=== PATIENT | male | born 1930 | race American Indian/Alaskan Native ===

== ENCOUNTER 2018-08-15 13:37 | Inpatient (IN) | payer MEDICARE ==
[2018-08-15] MEDS ORDERED: NACL 0.9% 1000 ML 1,000 ML IV ONE (14:30)
--- NOTE | 2018-08-15 14:31 | Emergency Department Report ---
ED GI Bleed HPI - General Chief complaint: GI Bleed Stated complaint: RECTAL PAIN Time Seen by Provider: 08/15/18 14:28 Source: EMS Mode of arrival: Stretcher Limitations: No Limitations - History of Present Illness Initial comments: Mrs. Turner is a 87-year-old male with history of end-stage renal disease on hemodialysis, last dialysis was Thursday. Patient brought to the emergency room via EMS for evaluation of lower GI bleed. Patient stated that for the last 7 days he has been passing black stool. Patient denied any abdominal pain, no hematemesis, hemoptysis or hematuria. Patient denied any chest pain or shortness of breath. Patient does not recall any endoscopy or colonoscopy in the last 10 years. MD complaint: melena -: days(s) (7) Severity scale (0 -10): 7 - Related Data Allergies Allergy/AdvReac Type Severity Reaction Status Date / Time No Known Allergies Allergy Verified 04/16/18 13:02 ED Review of Systems ROS: Stated complaint: RECTAL PAIN Other details as noted in HPI Comment: All other systems reviewed and negative Constitutional: denies: chills, fever Respiratory: denies: cough, orthopnea, shortness of breath, SOB with exertion, SOB at rest Cardiovascular: denies: chest pain, palpitations Gastrointestinal: melena. denies: abdominal pain, nausea, vomiting, diarrhea, constipation, hematemesis, hematochezia Musculoskeletal: denies: back pain Neurological: denies: headache, weakness ED Physical Exam - General Limitations: No Limitations General appearance: alert, in no apparent distress - Head Head exam: Present: atraumatic, normocephalic, normal inspection - Eye Eye exam: Present: normal appearance, PERRL - ENT ENT exam: Present: normal exam, normal orophraynx, mucous membranes moist - Neck Neck exam: Present: normal inspection, full ROM. Absent: tenderness, meningismus, lymphadenopathy, thyromegaly - Respiratory Respiratory exam: Present: normal lung sounds bilaterally - Cardiovascular Cardiovascular Exam: Present: regular rate, normal rhythm, normal heart sounds - GI/Abdominal GI/Abdominal exam: Present: soft, normal bowel sounds. Absent: distended, tenderness, guarding, rebound, rigid, organomegaly, pulsatile mass, hernia - Rectal Rectal exam: Present: normal inspection, normal rectal tone, heme (+) stool, black stool. Absent: fecal impaction, hemorrhoids, mass, tenderness - Back Exam Back exam: Present: normal inspection. Absent: CVA tenderness (R), CVA tenderness (L) - Neurological Exam Neurological exam: Present: alert, oriented X3, CN II-XII intact - Skin Skin exam: Present: warm, intact, normal color ED Course Vital Signs 08/15/18 13:55 Temperature 97.8 F Pulse Rate 65 Respiratory 18 Rate Blood Pressure 122/65 [Right] O2 Sat by Pulse 98 Oximetry ED Medical Decision Making - Lab Data Result diagrams: 08/15/18 15:08 08/15/18 15:08 - Medical Decision Making Mrs. Turner is a 87-year-old male with history of end-stage renal disease on hemodialysis, last dialysis was Thursday. Patient brought to the emergency room via EMS for evaluation of lower GI bleed. Patient stated that for the last 7 days he has been passing black stool. Patient denied any abdominal pain, no hematemesis, hemoptysis or hematuria. Patient denied any chest pain or shortness of breath. Patient does not recall any endoscopy or colonoscopy in the last 10 years. Patient remained stable in the ER. Hemoglobin came back at 11.1. I discussed the patient is Dr. Donahue, from gastroenterology, he advised to keep patient nothing by mouth after midnight for possible endoscopy tomorrow. I discussed the patient is Dr. Ramsay, he agreed to admit the patient to medical service for further management. Critical Care Time: Yes Critical care time in (mins) excluding proc time.: 30 Critical care attestation.: If time is entered above; I have spent that time in minutes in the direct care of this critically ill patient, excluding procedure time. ED Disposition Clinical Impression: Gastrointestinal hemorrhage Disposition: OP ADMIT IP TO THIS HOSP Is pt being admited?: Yes Condition: Stable Forms: Accompanied Note
[2018-08-15 15:39] LABS: Basophils # (Auto) 0.1 K/mm3 (0.0-0.1); Basophils % (Auto) 1.2 % (0.0-1.8); Eosinophils # (Auto) 0.2 K/mm3 (0.0-0.4); Hematocrit 34.4 % (35.5-45.6); Hemoglobin 11.3 gm/dl (11.8-15.2); Lymphocytes # (Auto) 0.8 K/mm3 (1.2-5.4); Mean Corpuscular HGB Conc 33 % (32-34); Mean Corpuscular Volume 100 fl (84-94); Monocytes # (Auto) 0.4 K/mm3 (0.0-0.8); Monocytes % (Auto) 7.8 % (0.0-7.3); Platelet Count 185 K/mm3 (140-440); Red Blood Count 3.45 M/mm3 (3.65-5.03)
[2018-08-15 15:46] LABS: INR 0.98 (0.87-1.13); Red Cell Distribution Width 20.7 % (13.2-15.2)
[2018-08-15 15:47] LABS: Partial Thromboplastin Time 32.1 Sec. (24.2-36.6)
[2018-08-15 15:56] LABS: Albumin 3.3 g/dL (3.9-5); Bilirubin,Direct 0.2 mg/dL (0-0.2); Calcium 10.3 mg/dL (8.4-10.2)
[2018-08-15] MEDS: PROTONIX 80 MG in NACL 0.9% 100 ML IV SCH (16:28)
--- NOTE | 2018-08-15 17:47 | Consultation ---
History of Present Illness - Reason for Consult Consult date: 08/15/18 GI bleed Requesting physician: JULIO CESAR DIAZ - History of Present Illness Mr. Turner is an 87-year-old man on whom I am consulted for evaluation of melena. Patient states he has had melena for more than a week. He states his bowel movements have changed and he is having to go every 3 or 4 hours or has the sense of needing to go though sometimes nothing will come out. By my history, patient was most concerned about the sense of need to defecate and then not having much in the way of output almost on an hourly basis with bowel movements occurring every 3-4 hours. Patient is however difficult to elucidate a cohesive history from. Patient has end-stage renal disease and states he has been on dialysis for over 6 months. He states that he did have some kind of bleeding from his stomach approximately a year ago, but he cannot recall at which hospital this was. Patient states he was at another hospital approximately a month ago with pneumonia and has not been able to walk since then. Unfortunately, we do not have any details. Patient denies abdominal pain nausea or vomiting. He denies chest pain shortness of breath lightheadedness or dizziness. He denies aspirin or non-pavan roidal usage, or known liver disease. Past History Past Medical History: diabetes, dialysis, ESRD, hypertension Past Surgical History: Other (Dialysis catheter in L subclavian) Social history: no significant social history. denies: smoking, alcohol abuse Family history: other (Unable to obtain) Medications and Allergies Allergies Allergy/AdvReac Type Severity Reaction Status Date / Time No Known Allergies Allergy Verified 04/16/18 13:02 Active Meds: Active Medications Sodium Chloride (Nacl 0.9% 1000 Ml) 1,000 mls @ 125 mls/hr IV ONCE ONE Stop: 08/15/18 22:29 Last Admin: 08/15/18 14:30 Dose: 125 mls/hr Documented by: Pantoprazole Sodium 80 mg/ (Sodium Chloride) 100 mls @ 10 mls/hr IV DIRECT LAVINIA Last Admin: 08/15/18 16:28 Dose: 8 mg/hr, 10 mls/hr Documented by: Review of Systems All systems: negative (as per HPI. Difficult to get cogent history) Exam - Constitutional Vitals: Temp Pulse Resp BP Pulse Ox 97.8 F 65 18 122/65 98 08/15/18 13:55 08/15/18 13:55 08/15/18 14:30 08/15/18 13:55 08/15/18 13:55 General appearance: Present: no acute distress, cachectic - EENT Eyes: Present: PERRL, EOM intact ENT: hearing intact - Neck Neck: Present: supple - Respiratory Respiratory effort: normal Respiratory: bilateral: CTA - Cardiovascular Rhythm: regular Heart Sounds: Present: S1 & S2 - Extremities Extremities: No edema - Abdominal General gastrointestinal: Present: soft, non-tender - Rectal Rectal Exam: other (Melena, Heme+, per ER) Results - Labs CBC & Chem 7: 08/15/18 15:08 08/15/18 15:08 Labs: Abnormal lab results 08/15/18 08/15/18 Range/Units 15:08 15:08 RBC 3.45 L (3.65-5.03) M/mm3 Hgb 11.3 L (11.8-15.2) gm/dl Hct 34.4 L (35.5-45.6) % MCV 100 H (84-94) fl MCH 33 H (28-32) pg RDW 20.7 H (13.2-15.2) % [place] % (Auto) 7.8 H (0.0-7.3) % Lymph # 0.8 L (1.2-5.4) K/mm3 Seg Neutrophils % 74.0 H (40.0-70.0) % Chloride 95.7 L (98-107) mmol/L BUN 37 H (9-20) mg/dL Creatinine 7.5 H (0.8-1.5) mg/dL Calcium 10.3 H (8.4-10.2) mg/dL Albumin 3.3 L (3.9-5) g/dL Assessment and Plan 1. Melena - history is perplexing since, with melena as described, patient should be much more anemic. This would be especially so given that he is on dialysis. His relatively good hemoglobin is therefore inexplicable. However, he does give a history of what sounds like an upper GI bleed, and therefore placing him on proton pump inhibitors is appropriate. - Continue PPI - Monitor H&H and transfuse as needed - We will do EGD tomorrow if not medically contraindicated.
[2018-08-15] MEDS ORDERED: REGLAN IV PRN (19:07)
[2018-08-15] MEDS ORDERED: TYLENOL PO PRN (19:07)
[2018-08-15] MEDS ORDERED: SODIUM CHLORIDE FLUSH SYRINGE 10 ML IV PRN (19:07)
[2018-08-15] MEDS ORDERED: MORPHINE IV PRN (19:07)
[2018-08-15] MEDS ORDERED: ZOFRAN IV PRN (19:07)
--- NOTE | 2018-08-15 19:11 | History and Physical Report ---
History of Present Illness Date of examination: 08/15/18 Date of admission: 08/15/18 16:36 Chief complaint: Dark stools for about 2 weeks History of present illness: Johnny is a 87-year-old male with history of end-stage renal disease on hemodialysis, last dialysis was Thursday brought to the emergency room via EMS for evaluation of lower GI bleed. Patient stated that for the last 14 days he has been passing black stools. Patient denied any abdominal pain, no h ematemesis, hemoptysis or hematuria. Patient denied any chest pain or shortness of breath. Patient does not recall any endoscopy or colonoscopy in the last 10 years. No lightheadedness or dizziness or syncope. Past History Past Medical History: diabetes, dialysis, ESRD, hypertension Past Surgical History: Other (Dialysis catheter in L subclavian) Social history: no significant social history. denies: smoking, alcohol abuse Family history: other (Unable to obtain) Review of Systems ROS: Stated complaint: RECTAL PAIN Other details as noted in HPI Comment: All other systems reviewed and negative Constitutional: denies: chills, fever Respiratory: denies: cough, orthopnea, shortness of breath, SOB with exertion, SOB at rest Cardiovascular: denies: chest pain, palpitations Gastrointestinal: melena. denies: abdominal pain, nausea, vomiting, diarrhea, constipation, hematemesis, hematochezia Musculoskeletal: denies: back pain Neurological: denies: headache, weakness 14 point review of systems and otherwise negative Past History Past Medical History: diabetes, dialysis, ESRD, hypertension Past Surgical History: Other (Dialysis catheter in L subclavian) Social history: no significant social history. denies: smoking, alcohol abuse Family history: other (Unable to obtain) Medications and Allergies Allergies Allergy/AdvReac Type Severity Reaction Status Date / Time No Known Allergies Allergy Verified 04/16/18 13:02 Active Meds: Active Medications Acetaminophen (Tylenol) 650 mg PO Q4H PRN PRN Reason: Pain MILD(1-3)/Fever >100.5/SERRA Sodium Chloride (Nacl 0.9% 1000 Ml) 1,000 mls @ 125 mls/hr IV ONCE ONE Stop: 08/15/18 22:29 Last Admin: 08/15/18 14:30 Dose: 125 mls/hr Documented by: Pantoprazole Sodium 80 mg/ (Sodium Chloride) 100 mls @ 10 mls/hr IV DIRECT LAVINIA Last Admin: 08/15/18 16:28 Dose: 8 mg/hr, 10 mls/hr Documented by: Sodium Chloride (Nacl 0.9% 1000 Ml) 1,000 mls @ 75 mls/hr IV DIRECT LAVINIA Metoclopramide HCl (Reglan) 10 mg IV Q6H PRN PRN Reason: Nausea And Vomiting Morphine Sulfate (Morphine) 2 mg IV Q4H PRN PRN Reason: Pain, Moderate (4-6) Ondansetron HCl (Zofran) 4 mg IV Q3H PRN PRN Reason: Nausea And Vomiting Sodium Chloride (Sodium Chloride Flush Syringe 10 Ml) 10 ml IV BID LAVINIA Sodium Chloride (Sodium Chloride Flush Syringe 10 Ml) 10 ml IV PRN PRN PRN Reason: LINE FLUSH Exam - Constitutional Vitals: Temp Pulse Resp BP Pulse Ox 97.8 F 65 18 122/65 98 08/15/18 13:55 08/15/18 13:55 08/15/18 14:30 08/15/18 13:55 08/15/18 13:55 General appearance: Present: no acute distress, well-nourished - EENT Eyes: Present: PERRL ENT: hearing intact, clear oral mucosa - Neck Neck: Present: supple, normal ROM - Respiratory Respiratory effort: normal Respiratory: bilateral: CTA - Cardiovascular Heart rate: 60 Rhythm: regular Heart Sounds: Present: S1 & S2. Absent: rub, click - Extremities Extremities: pulses symmetrical, No edema Peripheral Pulses: within normal limits - Abdominal General gastrointestinal: Present: soft, non-tender, non-distended, normal bowel sounds Male genitourinary: Present: normal - Rectal Rectal Exam: deferred - Integumentary Integumentary: Present: clear, warm, dry - Musculoskeletal Musculoskeletal: gait normal, strength equal bilaterally - Psychiatric Psychiatric: appropriate mood/affect, intact judgment & insight - Neurologic Neurologic: CNII-XII intact, moves all extremities - Allied Health Allied health notes reviewed: nursing, case management Results - Labs CBC & Chem 7: 08/15/18 20:51 08/15/18 15:08 Labs: Laboratory Last Values WBC 5.7 K/mm3 (4.5-11.0) 08/15/18 15:08 RBC 3.45 M/mm3 (3.65-5.03) L 08/15/18 15:08 Hgb 11.3 gm/dl (11.8-15.2) L 08/15/18 15:08 Hct 34.4 % (35.5-45.6) L 08/15/18 15:08 MCV 100 fl (84-94) H 08/15/18 15:08 MCH 33 pg (28-32) H 08/15/18 15:08 MCHC 33 % (32-34) 08/15/18 15:08 RDW 20.7 % (13.2-15.2) H 08/15/18 15:08 Plt Count 185 K/mm3 (140-440) 08/15/18 15:08 Lymph % (Auto) 14.0 % (13.4-35.0) 08/15/18 15:08 [place] % (Auto) 7.8 % (0.0-7.3) H 08/15/18 15:08 Eos % (Auto) 3.0 % (0.0-4.3) 08/15/18 15:08 Baso % (Auto) 1.2 % (0.0-1.8) 08/15/18 15:08 Lymph # 0.8 K/mm3 (1.2-5.4) L 08/15/18 15:08 [place] # 0.4 K/mm3 (0.0-0.8) 08/15/18 15:08 Eos # 0.2 K/mm3 (0.0-0.4) 08/15/18 15:08 Baso # 0.1 K/mm3 (0.0-0.1) 08/15/18 15:08 Seg Neutrophils % 74.0 % (40.0-70.0) H 08/15/18 15:08 Seg Neutrophils # 4.2 K/mm3 (1.8-7.7) 08/15/18 15:08 PT 13.6 Sec. (12.2-14.9) 08/15/18 15:08 INR 0.98 (0.87-1.13) 08/15/18 15:08 APTT 32.1 Sec. (24.2-36.6) 08/15/18 15:08 Sodium 138 mmol/L (137-145) 08/15/18 15:08 Potassium 4.0 mmol/L (3.6-5.0) 08/15/18 15:08 Chloride 95.7 mmol/L (98-107) L 08/15/18 15:08 Carbon Dioxide 27 mmol/L (22-30) 08/15/18 15:08 19 mmol/L 08/15/18 15:08 BUN 37 mg/dL (9-20) H 08/15/18 15:08 7.5 mg/dL (0.8-1.5) H 08/15/18 15:08 Estimated GFR 8 ml/min 08/15/18 15:08 5 % 08/15/18 15:08 Glucose 97 mg/dL (75-100) 08/15/18 15:08 Calcium 10.3 mg/dL (8.4-10.2) H 08/15/18 15:08 0.50 mg/dL (0.1-1.2) 08/15/18 15:08 0.2 mg/dL (0-0.2) 08/15/18 15:08 0.3 mg/dL 08/15/18 15:08 AST 26 units/L (5-40) 08/15/18 15:08 ALT 8 units/L (7-56) 08/15/18 15:08 88 units/L (35-129) 08/15/18 15:08 7.2 g/dL (6.3-8.2) 08/15/18 15:08 3.3 g/dL (3.9-5) L 08/15/18 15:08 0.8 % 08/15/18 15:08 Blood Type O POSITIVE 08/15/18 15:15 Antibody Screen Negative 08/15/18 15:15 - Imaging and Cardiology EKG: report reviewed (atrial fibrillation heart rate of 60 went into premature complexes left bundle branch block) Assessment and Plan Advance Directives: Yes (full code) VTE prophylaxis?: Mechanical Plan of care discussed with patient/family: Yes - Patient Problems (1) Gastrointestinal hemorrhage Current Visit: Yes Status: Chronic Plan to address problem: Unclear whether it is because of iron supplements There is no significant drop in H&H GI consult IV Protonix drip (2) ESRD (end stage renal disease) Current Visit: Yes Status: Chronic Plan to address problem: Continue hemodialysis as per schedule Nephrology apartment leasing consultant (3) Hypertension Current Visit: Yes Status: Chronic Qualifiers: Hypertension type: essential hypertension Qualified Code(s): I10 - Essential (primary) hypertension Plan to address problem: Catapres patch if necessary (4) Malnutrition Current Visit: Yes Status: Chronic Qualifiers: Protein-calorie malnutrition severity: moderate Plan to address problem: Oral supplements to be initiated Dietitian consult requested (5) DVT prophylaxis Current Visit: Yes Status: Acute Plan to address problem: On SCDs and GI prophylaxis
[2018-08-15] MEDS: NACL 0.9% 1000 ML 1,000 ML IV SCH (20:43)
[2018-08-15] MEDS: SODIUM CHLORIDE FLUSH SYRINGE 10 ML IV SCH (21:44)
[2018-08-15 22:08] LABS: Hematocrit 37.7 % (35.5-45.6); Hemoglobin 12.1 gm/dl (11.8-15.2)
[2018-08-16 05:12] LABS: Basophils # (Auto) 0.1 K/mm3 (0.0-0.1); Basophils % (Auto) 1.9 % (0.0-1.8); Eosinophils # (Auto) 0.2 K/mm3 (0.0-0.4); Eosinophils % (Auto) 4.1 % (0.0-4.3); Hematocrit 36.1 % (35.5-45.6); Hemoglobin 11.8 gm/dl (11.8-15.2); Lymphocytes # (Auto) 0.9 K/mm3 (1.2-5.4); Lymphocytes % (Auto) 16.5 % (13.4-35.0); Mean Corpuscular HGB Conc 33 % (32-34); Mean Corpuscular Volume 99 fl (84-94); Monocytes # (Auto) 0.4 K/mm3 (0.0-0.8); Monocytes % (Auto) 8.1 % (0.0-7.3); Platelet Count 179 K/mm3 (140-440); Red Blood Count 3.65 M/mm3 (3.65-5.03)
[2018-08-16 05:17] LABS: Red Cell Distribution Width 21.3 % (13.2-15.2)
[2018-08-16 05:29] LABS: Albumin 3.2 g/dL (3.9-5); Calcium 9.8 mg/dL (8.4-10.2)
[2018-08-16] MEDS: PROTONIX 80 MG in NACL 0.9% 100 ML IV SCH ×2 (05:55→21:52)
--- NOTE | 2018-08-16 07:38 | Progress Note ---
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 Acute blood loss anemia w/ +hemoccult in ED: GI following, monitor h/h closely, treat with PPI, EGD pending Hypertensive with Bradycardia, as low as 49: obtain home medications, remote tele->junctional 55, PACs ESRD on HD: consult Nephrology Mild malnutrition, poa: consulted [facility] Functional quadreplegia, poa: consulted PT need home med into EMR, d/w nursing full code DVT prophylaxis scd due to the melana Disposition: continue inpatient care, pending EGD, if negative and h/h stable tomorrow then discharge History Interval history: Patient was seen and examined. Follow-up on current diagnosis of Melena with An emia. No overnight events reported to me. Patient denies any chest pain, shortness breath, nausea/vomiting or severe headaches. Imaging, nursing note, chart, labs and old chart reviewed. Discussed with patient. Hospitalist Physical - Physical exam Narrative exam: Gen:thin frial, NAD, Awake, Alert, Orientated HEENT: NCAT, EOMI, PERRL, OP Clear Neck: supple, no adenopathy, no thyromegaly, no JVD CVS/Heart: Regular bradycardia, normal S1S2, pulses present bilaterally Chest/Lungs: CTA B, Symmetrical chest expansion, good air entry bilaterally GI/Abdomen: soft, NTND, good bowel sounds, no guarding or rebound /Bladder: no suprapubic tenderness, no CVA or paraspinal tenderness, hemoccult +per ED physician exam Extermity/Skin: no c/c/e, no obvious rash MSK: FROM x 4 Neuro: CN 2-12 grossly intact, no new focal deficits Psych: calm - Constitutional Vitals: Temp Pulse Resp BP Pulse Ox 98.0 F 49 L 20 143/61 72 L 08/16/18 04:56 08/16/18 04:56 08/16/18 04:56 08/16/18 04:56 08/16/18 04:56 General appearance: Present: no acute distress, well-nourished Results - Labs CBC & Chem 7: 08/16/18 04:28 08/16/18 04:28 Labs: Laboratory Last Values WBC 5.2 K/mm3 (4.5-11.0) 08/16/18 04:28 RBC 3.65 M/mm3 (3.65-5.03) 08/16/18 04:28 Hgb 11.8 gm/dl (11.8-15.2) 08/16/18 04:28 Hct 36.1 % (35.5-45.6) 08/16/18 04:28 MCV 99 fl (84-94) H 08/16/18 04:28 MCH 32 pg (28-32) 08/16/18 04:28 MCHC 33 % (32-34) 08/16/18 04:28 RDW 21.3 % (13.2-15.2) H 08/16/18 04:28 Plt Count 179 K/mm3 (140-440) 08/16/18 04:28 Lymph % (Auto) 16.5 % (13.4-35.0) 08/16/18 04:28 [place] % (Auto) 8.1 % (0.0-7.3) H 08/16/18 04:28 Eos % (Auto) 4.1 % (0.0-4.3) 08/16/18 04:28 Baso % (Auto) 1.9 % (0.0-1.8) H 08/16/18 04:28 Lymph # 0.9 K/mm3 (1.2-5.4) L 08/16/18 04:28 [place] # 0.4 K/mm3 (0.0-0.8) 08/16/18 04:28 Eos # 0.2 K/mm3 (0.0-0.4) 08/16/18 04:28 Baso # 0.1 K/mm3 (0.0-0.1) 08/16/18 04:28 Seg Neutrophils % 69.4 % (40.0-70.0) 08/16/18 04:28 Seg Neutrophils # 3.6 K/mm3 (1.8-7.7) 08/16/18 04:28 PT 13.6 Sec. (12.2-14.9) 08/15/18 15:08 INR 0.98 (0.87-1.13) 08/15/18 15:08 APTT 32.1 Sec. (24.2-36.6) 08/15/18 15:08 Sodium 141 mmol/L (137-145) 08/16/18 04:28 Potassium 4.0 mmol/L (3.6-5.0) 08/16/18 04:28 Chloride 99.8 mmol/L (98-107) 08/16/18 04:28 Carbon Dioxide 25 mmol/L (22-30) 08/16/18 04:28 20 mmol/L 08/16/18 04:28 BUN 39 mg/dL (9-20) H 08/16/18 04:28 8.0 mg/dL (0.8-1.5) H 08/16/18 04:28 Estimated GFR 8 ml/min 08/16/18 04:28 5 % 08/16/18 04:28 Glucose 63 mg/dL (75-100) L 08/16/18 04:28 5.5 % (4-6) 08/15/18 15:08 Calcium 9.8 mg/dL (8.4-10.2) 08/16/18 04:28 0.50 mg/dL (0.1-1.2) 08/16/18 04:28 0.2 mg/dL (0-0.2) 08/15/18 15:08 0.3 mg/dL 08/15/18 15:08 AST 27 units/L (5-40) 08/16/18 04:28 ALT 7 units/L (7-56) 08/16/18 04:28 85 units/L (35-129) 08/16/18 04:28 7.0 g/dL (6.3-8.2) 08/16/18 04:28 3.2 g/dL (3.9-5) L 08/16/18 04:28 0.8 % 08/16/18 04:28 Blood Type O POSITIVE 08/15/18 15:15 Antibody Screen Negative 08/15/18 15:15 Active Medications - Current Medications Current Medications: Generic Name Dose Route Start Last Admin Trade Name Freq PRN Reason Stop Dose Admin Acetaminophen 650 mg 08/15/18 19:07 Tylenol PO Q4H PRN Pain MILD(1-3)/Fever >100.5/SERRA Pantoprazole Sodium 80 mg/ 100 mls @ 10 mls/hr 08/15/18 15:00 08/16/18 05:55 Sodium Chloride IV 8 mg/hr DIRECT LAVINIA 10 mls/hr Administration 8 MG/HR Sodium Chloride 1,000 mls @ 75 mls/hr 08/15/18 20:00 08/15/18 20:43 Nacl 0.9% 1000 Ml IV 75 mls/hr DIRECT LAVINIA Administration Metoclopramide HCl 10 mg 08/15/18 19:07 Reglan IV Q6H PRN Nausea And Vomiting Morphine Sulfate 2 mg 08/15/18 19:07 Morphine IV Q4H PRN Pain, Moderate (4-6) Ondansetron HCl 4 mg 08/15/18 19:07 Zofran IV Q3H PRN Nausea And Vomiting Sodium Chloride 10 ml 08/15/18 22:00 08/15/18 21:44 Sodium Chloride Flush Syringe 10 Ml IV 10 ml BID LAVINIA Administration Sodium Chloride 10 ml 08/15/18 19:07 Sodium Chloride Flush Syringe 10 Ml IV PRN PRN LINE FLUSH
--- NOTE | 2018-08-16 09:31 | Consultation ---
History of Present Illness - History of Present Illness Thank you for the consultation ! Patient was evaluated today My assessment and plan are as follows End-stage renal disease: Patient will continue with hemodialysis on Thursday and Thursday schedule From dialysis standpoint upon admission potassium was 4.0 bicarbonate 27 hemoglobin 11.3 platelet count normal Admitted with melena being ruled out for GI bleed patient has not had any GI workup and last many years Anemia in end-stage renal disease: Monitor hemoglobin and hematocrit, erythropoietin as needed Secondary hyperparathyroidism periodically check phosphorus and PTH level, goal phosphorus less than 5.5 PTH less than 600, educated about renal osteodystrophy Hypertension and volume: , Adjust medications as needed, ultrafiltration as tolerated keep systolic blood pressure above 100 Malnutrition risk: High please consider high protein diet as well as nutrition follow-up, patient needs at least 1.5 g protein per KG body weight Dialysis access: Currently working well, discussed about monitoring Dietary counseling and education: Done at length to improve outcome with end- stage renal disease Patient was also educated about the hospital related comorbidities Overall prognosis appears to be guarded due to end-stage renal disease, dialysis status and other comorbidities Had a detailed discussion with patient about the plan of care from renal standpoint. All questions were answered labs and pertinent imaging findings were explained to the patient and simple Japanese. Prognosis: Guarded We'll continue to follow and make recommendation from renal standpoint Thank you for the consultation. History of presenting illness; Patient is 87-year-old male who has been admitted with dark stool possibly GI bleed, patient is currently in maintenance hemodialysis Thursday He denies any complaints of chest pain pressure or shortness of breath Patient has not had any GI workup for last several years Patient has no complaints of any chest pain shortness of breath nausea vomiting dizziness or lightheadedness Is currently being dialyzed with a catheter subclavian in location Please note that patient is a very poor historian Consultation was placed for management of end-stage renal disease Past medical history significant for: ESRD Hypertension Secondary hyperparathyroidism anemia and chronic kidney disease Current allergies: Reviewed Home medication/present medication: Reviewed Social history: Reviewed from the current chart Family history: Reviewed from the current chart Review of system is positive for; Dark stool possible GI bleed patient has not had any GI workup done All other review of systems were negative Physical examination Vitals: Reviewed from this admission Gen.: No acute distress HEENT: Normocephalic/atraumatic skull oral mucosa moist minimal pallor no icterus or uremic order Neck: Supple without any thyromegaly nodular mass or JVD Chest: Clear to auscultation anteriorly few faint basilar crackles otherwise unremarkable Heart: Regular rate and rhythm S1 and S2 heard no S3-S4 no pericardial rub Abdomen: Soft nontender no guarding rigidity rebound organomegaly no suprapubic masses, no CVA tenderness no renal bruit Back: No CVA tenderness Derm: No petechial rashes dry skin Extremity: Pulses palpable no peripheral cyanosis, 1+ edema dry skin Neurological: Alert awake follows commands Psychiatric: No agitation and aggression Labs and x-rays: Were reviewed from this admission Past History Past Medical History: diabetes, dialysis, ESRD, hypertension Past Surgical History: Other (Dialysis catheter in L subclavian) Social history: no significant social history. denies: smoking, alcohol abuse Family history: other (Unable to obtain) Medications and Allergies Allergies Allergy/AdvReac Type Severity Reaction Status Date / Time No Known Allergies Allergy Verified 04/16/18 13:02 Active Meds: Active Medications Acetaminophen (Tylenol) 650 mg PO Q4H PRN PRN Reason: Pain MILD(1-3)/Fever >100.5/SERRA Pantoprazole Sodium 80 mg/ (Sodium Chloride) 100 mls @ 10 mls/hr IV DIRECT [facility] Last Admin: 08/16/18 05:55 Dose: 8 mg/hr, 10 mls/hr Documented by: Sodium Chloride (Nacl 0.9% 1000 Ml) 1,000 mls @ 75 mls/hr IV DIRECT [facility] Last Admin: 08/15/18 20:43 Dose: 75 mls/hr Documented by: Metoclopramide HCl (Reglan) 10 mg IV Q6H PRN PRN Reason: Nausea And Vomiting Morphine Sulfate (Morphine) 2 mg IV Q4H PRN PRN Reason: Pain, Moderate (4-6) Ondansetron HCl (Zofran) 4 mg IV Q3H PRN PRN Reason: Nausea And Vomiting Sodium Chloride (Sodium Chloride Flush Syringe 10 Ml) 10 ml IV BID [facility] Last Admin: 08/15/18 21:44 Dose: 10 ml Documented by: Sodium Chloride (Sodium Chloride Flush Syringe 10 Ml) 10 ml IV PRN PRN PRN Reason: LINE FLUSH Exam - Vital Signs Vital signs: Vital Signs Temp Pulse Resp BP Pulse Ox 97.8 F 65 18 122/65 98 08/15/18 13:55 08/15/18 13:55 08/15/18 13:55 08/15/18 13:55 08/15/18 13:55 Results - Lab Results 08/16/18 04:28 08/16/18 04:28 Most recent lab results Calcium 9.8 mg/dL (8.4-10.2) 08/16/18 04:28
[2018-08-16] MEDS ORDERED: NACL 0.9% 100 ML IV PRN (10:13)
[2018-08-16] MEDS: SODIUM CHLORIDE FLUSH SYRINGE 10 ML IV SCH ×2 (11:13→21:18)
[2018-08-16] MEDS: NACL 0.9% 1000 ML 1,000 ML IV SCH (11:13)
[2018-08-16] MEDS ORDERED: NACL 0.9 (PRIMING MACHINE ONLY DIALYSIS) MC ONE (14:29)
--- NOTE | 2018-08-16 15:14 | Progress Note ---
Assessment and Plan 1. Melena - history is perplexing since, with melena as described, patient should be much more anemic. Hgb actually up to 11.8. This would be especially so given that he is on dialysis. His relatively good hemoglobin is therefore inexplicable. However, he does give a history of what sounds like an upper GI bleed, though not actively bleeding. Currently in dialysis, and not available for endoscopy til after 1700. - Continue PPI - Monitor H&H and transfuse as needed - We will do EGD tomorrow since not emergent, but also not elective. Subjective Date of service: 08/16/18 Interval history: Pt denies complaints. No active GI bleed. Objective - Constitutional Vitals: Vital Signs - 12hr 08/16/18 08/16/18 04:56 11:39 Temperature 98.0 F 97.3 F L Pulse Rate 49 L 54 L Respiratory 20 18 Rate Blood Pressure 143/61 141/61 O2 Sat by Pulse 72 L 98 Oximetry General appearance: Present: no acute distress - EENT Eyes: PERRL, EOM intact ENT: hearing intact - Respiratory Respiratory effort: normal - Gastrointestinal General gastrointestinal: Present: soft, non-tender - Labs CBC & Chem 7: 08/16/18 04:28 08/16/18 04:28 Labs: Abnormal lab results 08/15/18 08/15/18 08/16/18 Range/Units 15:08 15:08 04:28 RBC 3.45 L (3.65-5.03) M/mm3 Hgb 11.3 L (11.8-15.2) gm/dl Hct 34.4 L (35.5-45.6) % MCV 100 H 99 H (84-94) fl MCH 33 H (28-32) pg RDW 20.7 H 21.3 H (13.2-15.2) % [place] % (Auto) 7.8 H 8.1 H (0.0-7.3) % Baso % (Auto) 1.9 H (0.0-1.8) % Lymph # 0.8 L 0.9 L (1.2-5.4) K/mm3 Seg Neutrophils % 74.0 H (40.0-70.0) % Chloride 95.7 L (98-107) mmol/L BUN 37 H (9-20) mg/dL Creatinine 7.5 H (0.8-1.5) mg/dL Glucose (75-100) mg/dL Calcium 10.3 H (8.4-10.2) mg/dL Albumin 3.3 L (3.9-5) g/dL 08/16/18 Range/Units 04:28 RBC (3.65-5.03) M/mm3 Hgb (11.8-15.2) gm/dl Hct (35.5-45.6) % MCV (84-94) fl MCH (28-32) pg RDW (13.2-15.2) % [place] % (Auto) (0.0-7.3) % Baso % (Auto) (0.0-1.8) % Lymph # (1.2-5.4) K/mm3 Seg Neutrophils % (40.0-70.0) % Chloride (98-107) mmol/L BUN 39 H (9-20) mg/dL Creatinine 8.0 H (0.8-1.5) mg/dL Glucose 63 L (75-100) mg/dL Calcium (8.4-10.2) mg/dL Albumin 3.2 L (3.9-5) g/dL Medications & Allergies - Medications Allergies/Adverse Reactions: Allergies No Known Allergies Allergy (Verified 04/16/18 13:02) Home Medications: Home Medications Medication Instructions Recorded Confirmed Last Taken Type Aspirin EC 81 mg PO DAILY 08/16/18 08/16/18 1 Day Ago History ~08/15/18 Atorvastatin [Lipitor] 40 mg PO QHS 08/16/18 08/16/18 08/15/18 History Calcium Acetate 667 mg PO TIDWM 08/16/18 08/16/18 08/15/18 History Cholecalciferol Vit D3 [Vitamin D3 1,000 unit PO QDAY 08/16/18 08/16/18 08/15/18 History 1,000 UNIT TAB] Colace CAP 100 mg PO BID 08/16/18 08/16/18 08/15/18 History Dorzolamide-Timolol 2%-0.5% 1 drop OU BID 08/16/18 08/16/18 08/15/18 History Ferrous Sulfate [Ferrous Sulfate 324 mg PO DAILY 08/16/18 08/16/1819 History 324 MG] Furosemide 20 mg PO BID 08/16/18 08/16/18 08/15/18 History Latanoprost 0.005% 1 drop OU DAILY 08/16/18 08/16/18 08/15/18 History Losartan [Cozaar] 25 mg PO QDAY 08/16/18 08/16/18 08/15/18 History Mirtazapine 7.5 mg PO DAILY 08/16/18 08/16/18 08/15/18 History NIFEdipine XL [Procardia Xl] 30 mg PO BID 08/16/18 08/16/18 08/15/18 History Pantoprazole [Protonix] 40 mg PO QDAY 08/16/18 08/16/18 08/15/18 History Potassium Chloride [K-Dur] 10 meq PO BID 08/16/18 08/16/18 08/15/18 History Senna 8.6 mg PO DAILY 08/16/18 08/16/18 08/15/18 History Active Medications: Generic Name Dose Route Start Last Admin Trade Name Freq PRN Reason Stop Dose Admin Acetaminophen 650 mg 08/15/18 19:07 Tylenol PO Q4H PRN Pain MILD(1-3)/Fever >100.5/SERRA Pantoprazole Sodium 80 mg/ 100 mls @ 10 mls/hr 08/15/18 15:00 08/16/18 05:55 Sodium Chloride IV 8 mg/hr DIRECT L[facility] 10 mls/hr Administration 8 MG/HR Sodium Chloride 1,000 mls @ 75 mls/hr 08/15/18 20:00 08/16/18 11:13 Nacl 0.9% 1000 Ml IV 75 mls/hr DIRECT [facility] Administration Sodium Chloride 100 mls @ 999 mls/hr 08/16/18 10:13 Nacl 0.9% IV ELI PRN Hypotension Metoclopramide HCl 10 mg 08/15/18 19:07 Reglan IV Q6H PRN Nausea And Vomiting Morphine Sulfate 2 mg 08/15/18 19:07 Morphine IV Q4H PRN Pain, Moderate (4-6) Ondansetron HCl 4 mg 08/15/18 19:07 Zofran IV Q3H PRN Nausea And Vomiting Sodium Chloride 10 ml 08/15/18 22:00 08/16/18 11:13 Sodium Chloride Flush Syringe 10 Ml IV 10 ml BID LAVINIA Administration Sodium Chloride 10 ml 08/15/18 19:07 Sodium Chloride Flush Syringe 10 Ml IV PRN PRN LINE FLUSH
[2018-08-16 15:19] LABS: Hepatitis C Virus Antibody Non-Reactive (NonReactive)
[2018-08-16 15:20] LABS: Hepatitis B Surface Antigen Non-Reactive (Negative)
[2018-08-17] MEDS: NACL 0.9% 1000 ML 1,000 ML IV SCH (06:34)
[2018-08-17 08:16] LABS: Calcium 8.1 mg/dL (8.4-10.2)
[2018-08-17 08:18] LABS: Hematocrit 32.4 % (35.5-45.6); Hemoglobin 10.5 gm/dl (11.8-15.2); Mean Corpuscular HGB Conc 33 % (32-34); Mean Corpuscular Volume 101 fl (84-94); Platelet Count 153 K/mm3 (140-440); Red Blood Count 3.22 M/mm3 (3.65-5.03)
[2018-08-17 08:20] LABS: Red Cell Distribution Width 21.1 % (13.2-15.2)
[2018-08-17] MEDS: SODIUM CHLORIDE FLUSH SYRINGE 10 ML IV SCH ×2 (08:46→22:00)
[2018-08-17] MEDS: PROTONIX 80 MG in NACL 0.9% 100 ML IV SCH (08:46)
--- NOTE | 2018-08-17 09:00 | Progress Note ---
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 Follow-up on current diagnosis of Melena with Anemia. No overnight events reported to me. Patient denies any chest pain, shortness breath, nausea/vomiting or severe headaches. Imaging, nursing note, chart, labs and old chart reviewed. Discussed with patient. Hospitalist Physical - Physical exam Narrative exam: Gen:thin frial, NAD, Awake, Alert, Orientated HEENT: NCAT, EOMI, PERRL, OP Clear Neck: supple, no adenopathy, no thyromegaly, no JVD CVS/Heart: Regular bradycardia, normal S1S2, pulses present bilaterally Chest/Lungs: CTA B, Symmetrical chest expansion, good air entry bilaterally GI/Abdomen: soft, NTND, good bowel sounds, no guarding or rebound /Bladder: no suprapubic tenderness, no CVA or paraspinal tenderness, hemoccult +per ED physician exam Extermity/Skin: no c/c/e, no obvious rash MSK: FROM x 4 Neuro: CN 2-12 grossly intact, no new focal deficits Psych: calm - Constitutional Vitals: Temp Pulse Resp BP Pulse Ox 97.9 F 52 L 19 159/64 99 08/17/18 06:13 08/17/18 06:13 08/17/18 06:13 08/17/18 06:13 08/17/18 06:13 General appearance: Present: no acute distress Results - Labs CBC & Chem 7: 08/17/18 06:59 08/17/18 06:59 Labs: Laboratory Last Values WBC 4.0 K/mm3 (4.5-11.0) L 08/17/18 06:59 RBC 3.22 M/mm3 (3.65-5.03) L 08/17/18 06:59 Hgb 10.5 gm/dl (11.8-15.2) L 08/17/18 06:59 Hct 32.4 % (35.5-45.6) L 08/17/18 06:59 MCV 101 fl (84-94) H 08/17/18 06:59 MCH 33 pg (28-32) H 08/17/18 06:59 MCHC 33 % (32-34) 08/17/18 06:59 RDW 21.1 % (13.2-15.2) H 08/17/18 06:59 Plt Count 153 K/mm3 (140-440) 08/17/18 06:59 Lymph % (Auto) 16.5 % (13.4-35.0) 08/16/18 04:28 [place] % (Auto) 8.1 % (0.0-7.3) H 08/16/18 04:28 Eos % (Auto) 4.1 % (0.0-4.3) 08/16/18 04:28 Baso % (Auto) 1.9 % (0.0-1.8) H 08/16/18 04:28 Lymph # 0.9 K/mm3 (1.2-5.4) L 08/16/18 04:28 [place] # 0.4 K/mm3 (0.0-0.8) 08/16/18 04:28 Eos # 0.2 K/mm3 (0.0-0.4) 08/16/18 04:28 Baso # 0.1 K/mm3 (0.0-0.1) 08/16/18 04:28 Seg Neutrophils % 69.4 % (40.0-70.0) 08/16/18 04:28 Seg Neutrophils # 3.6 K/mm3 (1.8-7.7) 08/16/18 04:28 PT 13.6 Sec. (12.2-14.9) 08/15/18 15:08 INR 0.98 (0.87-1.13) 08/15/18 15:08 APTT 32.1 Sec. (24.2-36.6) 08/15/18 15:08 Sodium 140 mmol/L (137-145) 08/17/18 06:59 Potassium 3.7 mmol/L (3.6-5.0) 08/17/18 06:59 Chloride 102.3 mmol/L (98-107) 08/17/18 06:59 Carbon Dioxide 24 mmol/L (22-30) 08/17/18 06:59 17 mmol/L 08/17/18 06:59 BUN 20 mg/dL (9-20) 08/17/18 06:59 5.8 mg/dL (0.8-1.5) H 08/17/18 06:59 Estimated GFR 11 ml/min 08/17/18 06:59 3 % 08/17/18 06:59 Glucose 64 mg/dL (75-100) L 08/17/18 06:59 5.5 % (4-6) 08/15/18 15:08 Calcium 8.1 mg/dL (8.4-10.2) L D 08/17/18 06:59 0.50 mg/dL (0.1-1.2) 08/16/18 04:28 0.2 mg/dL (0-0.2) 08/15/18 15:08 0.3 mg/dL 08/15/18 15:08 AST 27 units/L (5-40) 08/16/18 04:28 ALT 7 units/L (7-56) 08/16/18 04:28 85 units/L (35-129) 08/16/18 04:28 7.0 g/dL (6.3-8.2) 08/16/18 04:28 3.2 g/dL (3.9-5) L 08/16/18 04:28 0.8 % 08/16/18 04:28 Hepatitis A IgM Ab Non-reactive (NonReactive) 08/16/18 14:30 Hep Bs Antigen Non-reactive (Negative) 08/16/18 14:30 Hep B Core IgM Ab Non-reactive (NonReactive) 08/16/18 14:30 Non-reactive (NonReactive) 08/16/18 14:30 Blood Type O POSITIVE 08/15/18 15:15 Antibody Screen Negative 08/15/18 15:15 Active Medications - Current Medications Current Medications: Generic Name Dose Route Start Last Admin Trade Name Freq PRN Reason Stop Dose Admin Acetaminophen 650 mg 08/15/18 19:07 Tylenol PO Q4H PRN Pain MILD(1-3)/Fever >100.5/SERRA Dextrose 25 ml 08/17/18 08:56 D50w (25gm) Syringe IV 08/17/18 08:57 ONCE ONE Pantoprazole Sodium 80 mg/ 100 mls @ 10 mls/hr 08/15/18 15:00 08/17/18 08:46 Sodium Chloride IV 8 mg/hr DIRECT LAVINIA 10 mls/hr Administration 8 MG/HR Sodium Chloride 1,000 mls @ 75 mls/hr 08/15/18 20:00 08/17/18 06:34 Nacl 0.9% 1000 Ml IV 75 mls/hr DIRECT LAVINIA Administration Sodium Chloride 100 mls @ 999 mls/hr 08/16/18 10:13 Nacl 0.9% IV ELI PRN Hypotension Metoclopramide HCl 10 mg 08/15/18 19:07 Reglan IV Q6H PRN Nausea And Vomiting Morphine Sulfate 2 mg 08/15/18 19:07 Morphine IV Q4H PRN Pain, Moderate (4-6) Ondansetron HCl 4 mg 08/15/18 19:07 Zofran IV Q3H PRN Nausea And Vomiting Sodium Chloride 10 ml 08/15/18 22:00 08/17/18 08:46 Sodium Chloride Flush Syringe 10 Ml IV 10 ml BID LAVINIA Administration Sodium Chloride 10 ml 08/15/18 19:07 Sodium Chloride Flush Syringe 10 Ml IV PRN PRN LINE FLUSH
--- NOTE | 2018-08-17 09:09 | Progress Note ---
Subjective Interval history: Patient was seen today for follow-up on multiple renal related issues Events of this hospitalization noted Patient has had hemodialysis treatment yesterday Tolerated fairly well He feels weak in general Patient denies having any chest pain pressure or shortness of breath Vitals labs intake output medications were reviewed Social history: Reviewed Allergies: Reviewed Family history: Reviewed Physical examination HEENT: Oral mucosa moist no pallor or icterus Neck: Supple no JVD Chest: Clear to auscultation anteriorly CVS: Regular rate and rhythm S1 and S2 heard Abdomen: Soft nontender no suprapubic masses no organomegaly appreciable Extremity: Dry skin less than 1+ peripheral edema Musculoskeletal: No joint effusion noted in knees and ankle Neurological: Alert awake Dermatology: No petechial rashes Psychiatry: No evidence of any agitation and aggression noted Assessment and plan; End-stage renal disease: Patient will continue with hemodialysis on Thursday and Thursday Current dialysis access is a permacath, issues related to infection sepsis and has been discussed with patient as well as his daughter in the outpatient setting as well Patient is currently being dialyzed at [facility] dialysis facility Has history of atrial fibrillation with variable response rate currently being followed by [place] cardiology Possible GI bleed currently being followed by gastroenterology service, pending endoscopy Declining health status, patient will need physical therapy occupational therapy evaluation Anemia in end-stage renal disease: Monitor hemoglobin and hematocrit, erythropoietin as needed Secondary hyperparathyroidism periodically check phosphorus and PTH level, goal phosphorus less than 5.5 PTH less than 600, educated about renal osteodystrophy Hypertension and volume: , Adjust medications as needed, ultrafiltration as tolerated keep systolic blood pressure above 100 Malnutrition risk: High please consider high protein diet as well as nutrition follow-up, patient needs at least 1.5 g protein per KG body weight Currently not suitable for fistula creation, will need allergy clearance, stabilization of health and follow-up with [place] vascular Dietary counseling and education: Done at length to improve outcome with end- stage renal disease Patient was also educated about the hospital related comorbidities Overall prognosis appears to be guarded due to end-stage renal disease, dialysis status and other comorbidities Pertinent lab findings were discussed with patient and patient does exhibit good understanding of renal issues. We'll continue to follow and make recommendation from renal standpoint Objective - Vital Signs Vital signs: Vital Signs - 12hr 08/17/18 08/17/18 08/17/18 01:10 01:15 06:13 Temperature 98.0 F 97.9 F Pulse Rate 60 52 L Respiratory 17 19 Rate Blood Pressure 147/61 159/64 O2 Sat by Pulse 94 94 99 Oximetry - Lab 08/17/18 06:59 08/17/18 06:59 Most recent lab results Calcium 8.1 mg/dL (8.4-10.2) L D 08/17/18 06:59 Medications & Allergies - Medications Allergies/Adverse Reactions: Allergies No Known Allergies Allergy (Verified 04/16/18 13:02) Home Medications: Home Medications Medication Instructions Recorded Confirmed Last Taken Type Aspirin EC 81 mg PO DAILY 08/16/18 08/16/18 1 Day Ago History ~08/15/18 Atorvastatin [Lipitor] 40 mg PO QHS 08/16/18 08/16/18 08/15/18 History Calcium Acetate 667 mg PO TIDWM 08/16/18 08/16/18 08/15/18 History Cholecalciferol Vit D3 [Vitamin D3 1,000 unit PO QDAY 08/16/18 08/16/18 08/15/18 History 1,000 UNIT TAB] Colace CAP 100 mg PO BID 08/16/18 08/16/18 08/15/18 History Dorzolamide-Timolol 2%-0.5% 1 drop OU BID 08/16/18 08/16/18 08/15/18 History Ferrous Sulfate [Ferrous Sulfate 324 mg PO DAILY 08/16/18 08/16/18 08/15/18 History 324 MG] Furosemide 20 mg PO BID 08/16/18 08/16/18 08/15/18 History Latanoprost 0.005% 1 drop OU DAILY 08/16/18 08/16/18 08/15/18 History Losartan [Cozaar] 25 mg PO QDAY 08/16/18 08/16/18 08/15/18 History Mirtazapine 7.5 mg PO DAILY 08/16/18 08/16/18 08/15/18 History NIFEdipine XL [Procardia Xl] 30 mg PO BID 08/16/18 08/16/18 08/15/18 History Pantoprazole [Protonix] 40 mg PO QDAY 08/16/18 08/16/18 08/15/18 History Potassium Chloride [K-Dur] 10 meq PO BID 08/16/18 08/16/18 08/15/18 History Senna 8.6 mg PO DAILY 08/16/18 08/16/18 08/15/18 History Active Medications: Generic Name Dose Route Start Last Admin Trade Name Sae PRN Reason Stop Dose Admin Acetaminophen 650 mg 08/15/18 19:07 Tylenol PO Q4H PRN Pain MILD(1-3)/Fever >100.5/SERRA Dextrose 25 ml 08/17/18 08:56 D50w (25gm) Syringe IV 08/17/18 08:57 ONCE ONE Pantoprazole Sodium 80 mg/ 100 mls @ 10 mls/hr 08/15/18 15:00 08/17/18 08:46 Sodium Chloride IV 8 mg/hr DIRECT LAVINIA 10 mls/hr Administration 8 MG/HR Sodium Chloride 1,000 mls @ 75 mls/hr 08/15/18 20:00 08/17/18 06:34 Nacl 0.9% 1000 Ml IV 75 mls/hr DIRECT LAVINIA Administration Sodium Chloride 100 mls @ 999 mls/hr 08/16/18 10:13 Nacl 0.9% IV ELI PRN Hypotension Metoclopramide HCl 10 mg 08/15/18 19:07 Reglan IV Q6H PRN Nausea And Vomiting Morphine Sulfate 2 mg 08/15/18 19:07 Morphine IV Q4H PRN Pain, Moderate (4-6) Ondansetron HCl 4 mg 08/15/18 19:07 Zofran IV Q3H PRN Nausea And Vomiting Sodium Chloride 10 ml 08/15/18 22:00 08/17/18 08:46 Sodium Chloride Flush Syringe 10 Ml IV 10 ml BID LAVINIA Administration Sodium Chloride 10 ml 08/15/18 19:07 Sodium Chloride Flush Syringe 10 Ml IV PRN PRN LINE FLUSH
[2018-08-17] MEDS ORDERED: D50W (25GM) Syringe IV ONE ×2 (10:30→16:00)
--- NOTE | 2018-08-17 15:59 | Anesthesia Day of Surgery ---
Anesthesia Day of Surgery - Day of Surgery Patient Examined: Yes Patient H&P Reviewed: Yes Patient is NPO: Yes Beta Blockers: No
[2018-08-17] MEDS ORDERED: NACL 0.9% 1000 ML 1,000 ML IV SCH (16:00)
--- NOTE | 2018-08-17 16:01 | Anesthesia Consultation ---
Anesthesia Consult and Med Hx Date of service: 08/17/18 - Airway Anesthetic Teeth Evaluation: Good ROM Head & Neck: Adequate Mental/Hyoid Distance: Adequate Mallampati Class: Class II Intubation Access Assessment: Probably Good - Pulmonary Exam CTA: Yes - Cardiac Exam Cardiac Exam: No Murmur - Pre-Operative Health Status ASA Pre-Surgery Classification: ASA4 Proposed Anesthetic Plan: MAC - Pulmonary Hx Smoking: No Hx Asthma: No Hx Respiratory Symptoms: No - Cardiovascular System Hx Hypertension: Yes - Central Nervous System Hx Seizures: Yes - Endocrine Hx End Stage Renal Disease: Yes Hx Insulin Dependent Diabetes: Yes
[2018-08-17] MEDS ORDERED: DIPRIVAN 10 MG/ML IV ONE (16:08)
--- NOTE | 2018-08-17 16:29 | Post Operative Note ---
Pre-op diagnosis: Melena Post-op diagnosis: other (Duodenitis, mild esophagitis) Findings: 1. Mild distal esophagitis with erythema. 2. Mild diffuse gastritis with patchy erythema. No ulcers or bleeding. 3. Mild nodular duodenitis. No ulcers. Procedure: EGD Anesthesia: [facility] [place] Surgeon: NEGRA TREJO Estimated blood loss: none Pathology: none Condition: stable Disposition: floor (Okay for D/C. On chronic PPI. F/u with PCP.)
[2018-08-17] MEDS ORDERED: D5W (50 ML) IV ONE (17:00)
[2018-08-18] MEDS: SODIUM CHLORIDE FLUSH SYRINGE 10 ML IV SCH ×2 (09:58→10:01)
[2018-08-18] MEDS ORDERED: PROTONIX PO SCH (10:00)
--- NOTE | 2018-08-18 11:04 | Gastroenterology Progress Note ---
<SONA NAIK - Last Filed: 08/18/18 11:05> Assessment and Plan 1.melena -H/H stable -no active signs of bleeding -s/p EGD yesterday with no ulcers or bleeding found (mild distal esophagtitis with erythema, mild diffuse gastritis with patchy erythema, and mild nodular duodenitis) -continue chronic PPI -continue supportive care -patient okay to be d/c per GI standpoint with f/u with PCP -no further recommendations at this time -will sign off, please call if needed Subjective Date of service: 08/18/18 Principal diagnosis: GI bleed Interval history: No acute distress or active signs of bleeding per pt/nursing. Denies GI complaints such as abd pain or N/V. Tolerating diet. Objective - Constitutional Vitals: Temp Pulse Resp BP Pulse Ox 98.1 F 49 L 18 156/60 97 08/18/18 04:55 08/18/18 04:55 08/18/18 04:55 08/18/18 04:55 08/18/18 04:55 General appearance: no acute distress - Respiratory Respiratory effort: normal - Gastrointestinal General gastrointestinal: Present: soft, non-tender, non-distended, normal bowel sounds - Labs CBC & Chem 7: 08/17/18 06:59 08/17/18 06:59 Labs: Laboratory Results - last 24 hr 08/17/18 08/17/18 08/18/18 16:02 17:21 05:58 POC Glucose 78 104 85 <NEGRA TREJO - Last Filed: 08/18/18 13:12> Assessment and Plan As noted. Needs to f/u with [facility] PCP. Objective - Constitutional Vitals: Temp Pulse Resp BP Pulse Ox 97.8 F 61 18 143/70 100 08/18/18 11:13 08/18/18 11:13 08/18/18 11:13 08/18/18 11:13 08/18/18 11:13 - Labs CBC & Chem 7: 08/17/18 06:59 08/17/18 06:59 Labs: Laboratory Results - last 24 hr 08/17/18 08/17/18 08/18/18 16:02 17:21 05:58 POC Glucose 78 104 85
--- NOTE | 2018-08-18 13:06 | Progress Note ---
Subjective Principal diagnosis: GI bleed Interval history: Patient was seen today for follow-up on multiple renal related issues feeling better status post GI workup,noted to have esophagitis Tolerated dialysis fairly well Due for dialysis today Patient denies having any chest pain pressure or shortness of breath Vitals labs intake output medications were reviewed Social history: Reviewed Allergies: Reviewed Family history: Reviewed Physical examination HEENT: Oral mucosa moist no pallor or icterus Neck: Supple no JVD Chest: Clear to auscultation anteriorly CVS: Regular rate and rhythm S1 and S2 heard Abdomen: Soft nontender no suprapubic masses no organomegaly appreciable Extremity: Dry skin less than 1+ peripheral edema Musculoskeletal: No joint effusion noted in knees and ankle Neurological: Alert awake Dermatology: No petechial rashes Psychiatry: No evidence of any agitation and aggression noted Assessment and plan; End-stage renal disease: Patient will continue with hemodialysis on Thursday and Thursday patient will need hemodialysis treatment Outpatient dialysis is at [facility] Chronic cardiac issues atrial fibrillation variable response will need to follow up with [place] [facility] Issues with GI bleed, being followed by gastroenterology Patient will need to follow up with his primary care physician as well as other upon discharge Discussed care plan with the patient's nurse Current dialysis access is a permacath, issues related to infection sepsis and has been discussed with patient as well as his daughter in the outpatient setting as well Patient is currently being dialyzed at [facility] dialysis facility Has history of atrial fibrillation with variable response rate currently being followed by [place] [facility] Possible GI bleed currently being followed by gastroenterology service, pending endoscopy Declining health status, patient will need physical therapy occupational therapy evaluation ,Dictated about fall prevention Anemia in end-stage renal disease: Monitor hemoglobin and hematocrit, erythropoietin as needed Secondary hyperparathyroidism periodically check phosphorus and PTH level, goal phosphorus less than 5.5 PTH less than 600, educated about renal osteodystrophy Hypertension and volume: , Adjust medications as needed, ultrafiltration as tolerated keep systolic blood pressure above 100 We'll continue to follow and make recommendation from renal standpoint Objective - Vital Signs Vital signs: Vital Signs - 12hr 08/18/18 08/18/18 04:55 11:13 Temperature 98.1 F 97.8 F Pulse Rate 49 L 61 Respiratory 18 18 Rate Blood Pressure 156/60 143/70 O2 Sat by Pulse 97 100 Oximetry - Lab 08/17/18 06:59 08/17/18 06:59 Most recent lab results Calcium 8.1 mg/dL (8.4-10.2) L D 08/17/18 06:59 Medications & Allergies - Medications Allergies/Adverse Reactions: Allergies No Known Allergies Allergy (Verified 04/16/18 13:02) Home Medications: Home Medications Medication Instructions Recorded Confirmed Last Taken Type Aspirin EC 81 mg PO DAILY 08/16/18 08/16/18 1 Day Ago History ~08/15/18 Atorvastatin [Lipitor] 40 mg PO QHS 08/16/18 08/16/18 08/15/18 History Calcium Acetate 667 mg PO TIDWM 08/16/18 08/16/18 08/15/18 History Cholecalciferol Vit D3 [Vitamin D3 1,000 unit PO QDAY 08/16/18 08/16/18 08/15/18 History 1,000 UNIT TAB] Colace CAP 100 mg PO BID 08/16/18 08/16/18 08/15/18 History Dorzolamide-Timolol 2%-0.5% 1 drop OU BID 08/16/18 08/16/18 08/15/18 History Ferrous Sulfate [Ferrous Sulfate 324 mg PO DAILY 08/16/18 08/16/18 08/15/18 History 324 MG] Furosemide 20 mg PO BID 08/16/18 08/16/18 08/15/18 History Latanoprost 0.005% 1 drop OU DAILY 08/16/18 08/16/18 08/15/18 History Pantoprazole [Protonix TAB] 40 mg PO QDAY 08/16/18 08/16/18 08/15/18 History Potassium Chloride [K-Dur] 10 meq PO BID 08/16/18 08/16/18 08/15/18 History Senna 8.6 mg PO DAILY 08/16/18 08/16/18 08/15/18 History Losartan [Cozaar] 25 mg PO QDAY #30 tablet 08/18/18 Unknown Rx Mirtazapine 7.5 mg PO DAILY #30 tablet 08/18/18 Unknown Rx NIFEdipine XL [Procardia Xl] 30 mg PO BID #60 tablet 08/18/18 Unknown Rx Pantoprazole [Protonix TAB] 40 mg PO QDAY #30 tablet 08/18/18 Unknown Rx Active Medications: Generic Name Dose Route Start Last Admin Trade Name Freq PRN Reason Stop Dose Admin Acetaminophen 650 mg 08/15/18 19:07 Tylenol PO Q4H PRN Pain MILD(1-3)/Fever >100.5/SERRA Sodium Chloride 1,000 mls @ 75 mls/hr 08/15/18 20:00 08/17/18 06:34 Nacl 0.9% 1000 Ml IV 75 mls/hr DIRECT LAVINIA Administration Sodium Chloride 100 mls @ 999 mls/hr 08/16/18 10:13 Nacl 0.9% IV ELI PRN Hypotension Sodium Chloride 1,000 mls @ 50 mls/hr 08/17/18 16:00 08/17/18 16:00 Nacl 0.9% 1000 Ml IV 50 mls/hr DIRECT LAVINIA Administration Metoclopramide HCl 10 mg 08/15/18 19:07 Reglan IV Q6H PRN Nausea And Vomiting Morphine Sulfate 2 mg 08/15/18 19:07 Morphine IV Q4H PRN Pain, Moderate (4-6) Ondansetron HCl 4 mg 08/15/18 19:07 Zofran IV Q3H PRN Nausea And Vomiting Pantoprazole Sodium 40 mg 08/18/18 10:00 08/18/18 09:58 Protonix PO 40 mg QDAY LAVINIA Administration Sodium Chloride 10 ml 08/15/18 22:00 08/18/18 10:01 Sodium Chloride Flush Syringe 10 Ml IV 10 ml BID LAVINIA Administration Sodium Chloride 10 ml 08/15/18 19:07 Sodium Chloride Flush Syringe 10 Ml IV PRN PRN LINE FLUSH
--- NOTE | 2018-08-18 13:15 | Discharge Summary ---
Providers - Providers Date of Admission: 08/15/18 16:36 Date of discharge: 08/18/18 Attending physician: LEONOR ROBLES 08/15/18 16:33 Consult to Physician [CONS] Stat Comment: Consulting Provider: NEGRA TREJO Physician Instructions: Reason For Exam: GI BLEED 08/15/18 22:25 Consult to Physician [CONS] Routine Comment: Consulting Provider: ZULLY AUSTIN Physician Instructions: Reason For Exam: ESRD 08/16/18 07:37 Physical Therapy Evaluation and Treat [CONS] Routine Comment: Reason For Exam: gait evaluation/ambulatory dysfunction 08/16/18 07:38 Consult to Case Management [CONS] Routine Services Needed at Discharge: Director [place] Notified:: copy given to Additional Physician Instructions: SNF Placement as per family request: Please send out Jose D. 08/16/18 13:52 Consult to Dietitian/Nutrition [CONS] Routine Physician Instructions: Reason For Exam: Reason for Consult: Malnutrition [facility] Condition: Fair Pertinent studies: EGD showed gastritis and duodenitis no bleeding. No ulcers. Hospital course: Patient 87 years old with a history of end-stage renal disease hemodialysis Thursday and Fridays, diabetes, hypertension functional quadriplegia presented with a melanotic stool associated with acute blood loss anemia. Patient also had evidence of malnutrition. Patient was brought in had EGD which showed gastritis and duodenitis. No evidence of active bleeding. Patient was stabilized to be discharged back home in stable but chronically ill condition. She'll follow-up with GI and primary care physician upon discharge. Patient given proton pump inhibitor for gastritis. She has hypertension fairly well controlled. No further episodes of bleeding or blood loss throughout hospital stay. Disposition: DC- TO HOME OR SELFCARE - Discharge Diagnoses (1) Hypoglycemia Status: Acute (2) ESRD (end stage renal disease) Status: Chronic (3) Gastrointestinal hemorrhage Status: Chronic (4) Hypertension Status: Chronic Qualifiers: Hypertension type: essential hypertension Qualified Code(s): I10 - Essential (primary) hypertension (5) Malnutrition Status: Chronic Qualifiers: Protein-calorie malnutrition severity: moderate Core Measure Documentation - Palliative Care Palliative Care/ Comfort Measures: Not Applicable - Core Measures Any of the following diagnoses?: none Exam - Constitutional Vitals: Temp Pulse Resp BP Pulse Ox 97.8 F 61 18 143/70 100 08/18/18 11:13 08/18/18 11:13 08/18/18 11:13 08/18/18 11:13 08/18/18 11:13 General appearance: Present: no acute distress, well-nourished - EENT Eyes: Present: PERRL ENT: hearing intact, clear oral mucosa - Neck Neck: Present: supple, normal ROM - Respiratory Respiratory effort: normal Respiratory: bilateral: CTA - Cardiovascular Heart Sounds: Present: S1 & S2. Absent: rub, click - Extremities Extremities: pulses symmetrical, No edema Extremity abnormal: other (quadriplegia unchanged generalized weakness.) Peripheral Pulses: within normal limits - Abdominal General gastrointestinal: Present: soft, non-tender, non-distended, normal bowel sounds Male genitourinary: Present: normal - Integumentary Integumentary: Present: clear, warm, dry - Musculoskeletal Musculoskeletal: gait normal, strength equal bilaterally - Psychiatric Psychiatric: appropriate mood/affect, intact judgment & insight - Neurologic Neurologic: CNII-XII intact, moves all extremities Plan Activity: up only with assistance Weight Bearing Status: Non-Weight Bearing Diet: low salt, renal Special Instructions: home health RN Follow up with: GODFREY DANIELS MD [Primary Care Provider] - 3-5 Days Forms: Accompanied Note Prescriptions: Losartan [Cozaar] 25 mg PO QDAY #30 tablet Mirtazapine 7.5 mg PO DAILY #30 tablet NIFEdipine XL [Procardia Xl] 30 mg PO BID #60 tablet Pantoprazole [Protonix TAB] 40 mg PO QDAY #30 tablet
[2018-08-18 19:46] VITALS: BP 142/65
--- NOTE | 2018-10-02 12:09 | Operative Report ---
PROCEDURE: Upper endoscopy. PREOPERATIVE DIAGNOSIS: Melena. POSTOPERATIVE DIAGNOSES: Esophagitis, gastritis, and duodenitis. SEDATION: MAC by Anesthesia. HISTORY: The patient is an 87-year-old man who is on dialysis with end-stage renal disease. He has a history of melena for more than a week. However, his hemoglobin has been relatively good at 11. DESCRIPTION OF PROCEDURE: Procedure, indications, risks, and benefits were explained and consent was obtained. The patient was placed in left lateral decubitus position and sedated. Olympus video upper endoscope was passed through the mouth and oropharynx into the descending duodenum. Scope was then gradually withdrawn with close inspection of mucosa. FINDINGS: 1. Mild distal esophageal erythema consistent with mild nonerosive esophagitis. Esophagus is otherwise normal appearing. 2. Mild diffuse gastritis as noted by patchy erythema, but with no ulcers or bleeding noted. 3. Mild nodular duodenitis with no erosions or ulcers noted and no evidence of bleeding. The patient tolerated the procedure well without immediate complications. IMPRESSION: Mild gastritis, esophagitis, and duodenitis, consistent with dialysis. RECOMMENDATIONS: 1. Chronic proton pump inhibitors. 2. Monitor H and H. [facility]# [id number] HRC/NTS
== END 2018-08-18 20:22 | disposition home health service (06) | DRG 377 ==
LOC: ED 13:37 → 3A 16:36
PROVIDERS: ADMIT Internal Medicine; ATTEND Internal Medicine
PROC: 5A1D70Z Performance of Urinary Filtration, Intermittent, Less than 6 Hours Per Day (ICD-10-PCS; 2018-08-16)
PROC: 0DJ08ZZ Inspection of Upper Intestinal Tract, Via Natural or Artificial Opening Endoscopic (ICD-10-PCS; principal; 2018-08-17)
PROC: 5A1D70Z Performance of Urinary Filtration, Intermittent, Less than 6 Hours Per Day (ICD-10-PCS; 2018-08-18)
DX: K29.71 Gastritis, unspecified, with bleeding (principal); N18.6 End stage renal disease; R53.2 Functional quadriplegia; D62 Acute posthemorrhagic anemia; E44.0 Moderate protein-calorie malnutrition; N25.81 Secondary hyperparathyroidism of renal origin; I12.0 Hypertensive chronic kidney disease with stage 5 chronic kidney disease or end stage renal disease; K29.81 Duodenitis with bleeding; E11.22 Type 2 diabetes mellitus with diabetic chronic kidney disease; R00.1 Bradycardia, unspecified; D63.1 Anemia in chronic kidney disease; N25.0 Renal osteodystrophy; E11.649 Type 2 diabetes mellitus with hypoglycemia without coma; K20.9 Esophagitis, unspecified; Z68.20 Body mass index [BMI] 20.0-20.9, adult; Z99.2 Dependence on renal dialysis
CPT/HCPCS: 36415; 80048; 80053; 80074; 80076; 82271; 82962; 83036; 85014; 85018; 85025; 85027; 85610; 85730; 86850; 86900; 86901; 93005; 93010; G0378; C9113; J2704; J7030